=== PATIENT | female | born 1990 | race Caucasian/White ===

== ENCOUNTER 2021-06-11 13:50 | Emergency (ER) | payer OTHER, SELFPAY ==
[2021-06-11] VITALS (10 sets, daily range): BP systolic 112–156; BP diastolic 70–93; PULSE 68–78; RESP 16–18; TEMP 36.6–36.8; O2SAT 97–100; BMI 21.6
[2021-06-11 14:23] LABS: Add Manual Diff / Slide Review NO; Basophils Absolute Auto 100 /uL (0-100); Basophils Percent Auto 0.5 % (0-2); Eosinophils Absolute Auto 100 /uL (0-450); Eosinophils Percent Auto 0.6 % (2-4); Hematocrit 39.1 % (36-46); Hemoglobin 13.4 g/dL (12.0-16.0); Lymphocytes Absolute Auto 1200 /uL (1100-4500); Lymphocytes Percent Auto 10.2 % (25-40); Mean Corpuscular HGB Conc 34.4 % (30-36); Mean Corpuscular Volume 87.1 fL (80-100); Monocytes Absolute Auto 500 /uL (0-900); Monocytes Percent Auto 4.5 % (3-14); Neutrophils Absolute Auto 9700 /uL (1500-7000); Neutrophils Percent Auto 84.2 % (50-75); Platelet Count 315 X10^3/uL (150-400); Red Blood Cell Count 4.49 X10^6/uL (4.0-5.2); Red Cell Distribution Width 12.4 % (11.6-14.8); White Blood Cell Count 11.5 X10^3/uL (4.5-11.0)
[2021-06-11 14:37] LABS: Appearance Urine UA CLOUDY; Bilirubin Urine UA NEGATIVE (NEGATIVE); Color Urine UA RED; Glucose Urine UA NEGATIVE (Negative); Ketones Urine UA NEGATIVE (NEGATIVE); Leukocyte Esterase Urine UA TRACE (NEGATIVE); Nitrite Urine UA NEGATIVE (Negative); Occult Blood Urine UA 3+ (Negative); Protein Urine UA 2+ (Negative); Specific Gravity Urine UA >=1.030 (1.000-1.035); Urobilinogen Urine UA 0.2 E.U./dL (0.2)
[2021-06-11 14:38] LABS: BUN Creatinine Ratio 19.7 (6-22); Blood Urea Nitrogen 13 mg/dL (7-17); Calcium 9.4 mg/dL (8.4-10.2); Carbon Dioxide 28 mmol/L (22-32); Chloride 102 mmol/L (98-107); Estimated Glomerular Filt Rate > 60.0 mL/min (>60); Glucose 123 mg/dL (70-100); HEMOLYSIS < 15 (0-50); Potassium 3.9 mmol/L (3.4-5.1); Sodium 140 mmol/L (137-145)
[2021-06-11 14:49] LABS: RBC Urine >100/HPF (0-5/HPF); pH Urine UA 5.5 (4.5-8.0)
[2021-06-11 14:50] LABS: Amorphous Sediment Urine 1+; Bacteria Urine Moderate (10-30); Culture Indicated Urine Specimen Cultured; Mucus Urine 1+ (Negative); Squamous Epithelial Cell Urine 1-5 /HPF (0-5/HPF); WBC Urine 5-10/HPF (0-5/HPF)
--- NOTE | 2021-06-11 15:31 | ED_ITS ---
HPI - General Adult General Chief complaint: Vaginal Bleeding Stated complaint: severe cramping, dizzy, lightheaded Time Seen by Provider: 06/11/21 15:14 Source: patient Mode of arrival: Ambulatory History of Present Illness HPI narrative: 31-year-old female. States that she had a negative test approximately 1 week ago. Is here today because of right sided adnexal discomfort and also vaginal bleeding. She states that her symptoms have improved somewhat since the onset earlier today but her still present. She was concerned about a miscarriage. States that this is about the time when she would have a menstrual cycle but symptoms that she is presenting which her muscle worse than normal. No fevers. No urinary symptoms. No change in bowel habits. No prior abdominal surgeries. Related Data Allergies Allergy/AdvReac Type Severity Reaction Status Date / Time No Known Drug Allergies Allergy Verified 06/11/21 14:06 Review of Systems Gastrointestinal Gastrointestinal: Reports as per HPI and Reports system reviewed and no additional complaints, except as documented Genitourinary Genitourinary: Reports system reviewed and no additional complaints, except as documented Musculoskeletal Musculoskeletal: Reports system reviewed and no additional complaints, except as documented Integumentary/Breasts Skin/Breast: Reports system reviewed and no additional complaints, except as documented Hematologic/Lymphatic On Anticoagulants: No Patient History Medical History Healthy adult Social History Smoking Status: Never smoker Smoking Status: Never smoker alcohol intake frequency: holidays/special occasions only Substance Use Type: does not use Exam Initial Vital Signs Initial Vital Signs: Vital Signs Temperature 98 F 06/11/21 14:02 Pulse Rate 78 06/11/21 14:02 Respiratory Rate 18 06/11/21 14:02 Blood Pressure 112/70 06/11/21 14:02 Pulse Oximetry 98 06/11/21 14:02 HENMT Head: normal to inspection Resp Effort & Inspection: normal respiratory effort Cardio Rate: regular rate GI Palpation: soft, No firm, No guarding and tender (Right adnexa) Skin General: no rashes or lesions noted Neuro General: patient alert, patient awake and moves all extremities Extrem General: normal to inspection and capillary refill normal Psych Appearance: grossly normal and well kempt Course Orders Ordered: ED Orders 06/11/21 14:15 Basic Metabolic Panel Stat Complete Blood Count AUTO DIFF Stat Urinalysis and Microscopic Stat Urine Culture Stat 06/11/21 15:31 US pelvic complete Stat Vital Signs Vital signs: Vital Signs - 8 hr 06/11/21 14:02 06/11/21 14:57 06/11/21 14:58 Temperature 98 F Pulse Rate 78 72 70 Respiratory Rate 18 Blood Pressure 112/70 128/76 Pulse Oximetry 98 97 99 06/11/21 15:00 06/11/21 15:01 06/11/21 15:02 Temperature 98.2 F Pulse Rate 72 69 68 Respiratory Rate 16 Blood Pressure 130/93 H 128/76 Pulse Oximetry 99 98 100 06/11/21 15:30 06/11/21 15:31 06/11/21 16:34 Temperature Pulse Rate 76 68 73 Respiratory Rate 18 18 Blood Pressure 156/92 H 156/92 H 143/76 H Pulse Oximetry 99 99 98 06/11/21 16:35 Temperature Pulse Rate 73 Respiratory Rate 18 Blood Pressure 143/76 H Pulse Oximetry 99 Medical Decision Making Lab Data Lab results reviewed: Yes I reviewed the patient's lab results. Result diagrams: 06/11/21 14:15 06/11/21 14:15 Labs: Lab Results 06/11/21 06/11/21 06/11/21 Range/Units 14:15 14:15 14:15 WBC 11.5 H (4.5-11.0) X10^3/uL RBC 4.49 (4.0-5.2) X10^6/uL Hgb 13.4 (12.0-16.0) g/dL Hct 39.1 (36-46) % MCV 87.1 (80-100) fL MCH 30.0 (26-34) PG MCHC 34.4 (30-36) % RDW 12.4 (11.6-14.8) % Plt Count 315 (150-400) X10^3/uL Neut % (Auto) 84.2 H (50-75) % Lymph % (Auto) 10.2 L (25-40) % [place] % (Auto) 4.5 (3-14) % Eos % (Auto) 0.6 L (2-4) % Baso % (Auto) 0.5 (0-2) % Neut # (Auto) 9700 H (8881-0519) /uL Lymph # (Auto) 1200 (6599-9988) /uL [place] # (Auto) 500 (0-900) /uL Eos # (Auto) 100 (0-450) /uL Baso # (Auto) 100 (0-100) /uL Sodium 140 (137-145) mmol/L Potassium 3.9 (3.4-5.1) mmol/L Chloride 102 (98-107) mmol/L Carbon Dioxide 28 (22-32) mmol/L BUN 13 (7-17) mg/dL Creatinine 0.66 (0.52-1.04) mg/dL Estimated GFR > 60.0 (>60) mL/min BUN/Creatinine Ratio 19.7 (6-22) Glucose 123 H (70-100) mg/dL Calcium 9.4 (8.4-10.2) mg/dL Urine Color Red Urine Appearance Cloudy Urine pH 5.5 (4.5-8.0) Ur Specific [place] >=1.030 H (1.000-1.035) Urine Protein 2+ H (Negative) Urine Glucose (UA) Negative (Negative) g/dL Urine Ketones Negative (NEGATIVE) Urine Occult Blood 3+ H (Negative) Urine Nitrate Negative (Negative) Urine Bilirubin Negative (NEGATIVE) Urine Urobilinogen 0.2 (0.2) E.U./dL Ur Leukocyte Esterase Trace H (NEGATIVE) Urine RBC >100/hpf H (0-5/HPF) Urine WBC 5-10/hpf H (0-5/HPF) Ur Squamous Epith Cells 1-5 /hpf (0-5/HPF) Amorphous Sediment 1+ Urine Bacteria Moderate (10-30) H (None) Urine Mucus 1+ H (Negative) Ur Culture Indicated? Specimen cultured Point of Care Testing Test Results Negative Point of care testing: Point of Care Testing Test Results Negative Imaging Data US - BUILDING SURVEYOR: Radiologist's Impression: [address] [address] Ultrasound Report Signed Patient: Geri Lira MR#: [id number] : 1990 Acct:[id number] Age/Sex: 31 / F Date of Service: 06/11/21 Loc: ED Accession Number: [id number] ?? Procedure: US pelvic complete Ordering Provider: Harpal Vazquez D.O. PROCEDURE:? US PELVIC COMPLETE ? INDICATIONS:? RIGHT ADNEXA PAIN AND VAGINAL BLEEDING ? TECHNIQUE:? Real-time scanning was performed of the pelvic organs, with image documentation.? Additional endovaginal scanning was necessary due to incomplete visualization of the adnexal and endometrial structures by transabdominal scanning.? ? COMPARISON:? None. ? FINDINGS:? ?? Uterus:? Uterus is retroverted and normal in size at 7.1 x 4.2 x 6 point cm. The myometrium is homogeneous. ? The endometrium measures 8 mm combined thickness.? ? Ovaries:? The right ovary measures 4.2 x 1.9 x 1.7 cm and demonstrates a complex focus that measures 12 x 10 x 13 mm. The left ovary measures 4.1 x 1.7 x 1.9 cm. The ovaries otherwise have a normal sonographic appearance.? No adnexal masses are seen. ? Other:? No pathologic free abdominal or pelvic fluid. ? ? IMPRESSION:? Complex focus seen involving the right ovary that measures up to 13 mm, which may be related to a resolving hemorrhagic cyst. If it would be clinically appropriate, a followup pelvic ultrasound could be considered in 6 weeks to assure resolution/ improvement.? We strive to produce accurate, complete, and clear reports of imaging services. To assist us in improving patient care, this report was composed using standard report templates and voice recognition software. Therefore, it may contain abnormal punctuation, insertions and/or omissions. Occasional wrong-word or sound-alike substitutions may occur. Though we review the report and make efforts to correct it, we do recom mend that the report be read carefully in proper context to recognize any text inaccuracies. ? ? Dictated by: Lorenzo Zhang M.D. on 06/11/2021 at 15:20 ? ? Approved by: Lorenzo Zhang M.D. on 06/11/2021 at 15:21? MDM Narrative Medical decision making narrative: Patient's labs and exam relatively benign. test is negative. Not anemic. Has right adnexa discomfort. Ultrasound shows what appears to be a ruptured right ovarian cyst which most likely explains her adnexal discomfort. I suspect vaginal bleeding is related to menses. I do feel that we can hold on further workup for now. She was given return precautions and follow-up instructions. She expressed understanding and agreement. Discharge Plan Departure Patient Disposition: Home Clinical Impression: Vaginal bleeding, Ovarian cyst Instructions: DI for Vaginal Bleeding Activity Restrictions/Additional Instructions: I do recommend that you contact your primary doctor for a follow-up. Return to the emergency department for any new or worsening symptoms. Referrals: Jose Angel Cancino MD [Primary Care Provider] -
--- NOTE | 2021-06-11 15:31 | DI.US.S_ITS ---
PROCEDURE: US PELVIC COMPLETE INDICATIONS: RIGHT ADNEXA PAIN AND VAGINAL BLEEDING TECHNIQUE: Real-time scanning was performed of the pelvic organs, with image documentation. Additional endovaginal scanning was necessary due to incomplete visualization of the adnexal and endometrial structures by transabdominal scanning. COMPARISON: None. FINDINGS: Uterus: Uterus is retroverted and normal in size at 7.1 x 4.2 x 6 point cm. The myometrium is homogeneous. The endometrium measures 8 mm combined thickness. Ovaries: The right ovary measures 4.2 x 1.9 x 1.7 cm and demonstrates a complex focus that measures 12 x 10 x 13 mm. The left ovary measures 4.1 x 1.7 x 1.9 cm. The ovaries otherwise have a normal sonographic appearance. No adnexal masses are seen. Other: No pathologic free abdominal or pelvic fluid. IMPRESSION: Complex focus seen involving the right ovary that measures up to 13 mm, which may be related to a resolving hemorrhagic cyst. If it would be clinically appropriate, a followup pelvic ultrasound could be considered in 6 weeks to assure resolution/ improvement. We strive to produce accurate, complete, and clear reports of imaging services. To assist us in improving patient care, this report was composed using standard report templates and voice recognition software. Therefore, it may contain abnormal punctuation, insertions and/or omissions. Occasional wrong-word or sound-alike substitutions may occur. Though we review the report and make efforts to correct it, we do recommend that the report be read carefully in proper context to recognize any text inaccuracies. Dictated by: Lorenzo Zhang M.D. on 06/11/2021 at 15:20 Approved by: Lorenzo Zhang M.D. on 06/11/2021 at 15:21
== END 2021-06-11 16:55 | disposition home or self-care (01) ==
PROVIDERS: Emergency Provider Emergency Medicine; PCP Family Medicine
DX: N93.9 Abnormal uterine and vaginal bleeding, unspecified (principal); N83.201 Unspecified ovarian cyst, right side
CPT/HCPCS: 36415; 76830; 76856; 80048; 81001; 81025; 85025; 87086; 99284

== ENCOUNTER 2024-06-01 09:56 | Emergency (ER) | payer OTHER, SELFPAY ==
[2024-06-01 10:01] VITALS: BP 120/59; PULSE 67; RESP 14; TEMP 36.6; O2SAT 99; BMI 22.6
--- NOTE | 2024-06-01 11:23 | ED.SKABFB ---
HPI - Skin/Abscess/Foreign Bdy <Ashley Burnett PA-C - Last Filed: 06/01/24 13:03> General Chief complaint: Skin/Abscess/Foreign Body Stated complaint: numbness and droopy r eye Time Seen by Provider: 06/01/24 11:00 Source: patient Mode of arrival: Ambulatory History of Present Illness HPI narrative: Ms. Lira is a very pleasant 34-year-old female with no reported past medical history who presents to the emergency department for numb sensation on her right upper eyelid x8 weeks now with concern for potential drooping right eyelid since this morning. Patient states 8 weeks ago she developed abnormal sensation of her right upper eyelid that developed slowly. Reports that the eyelid feels like it should be numb but when she touches it it is not actually numb. She denies tingling or pins and needles or pain. Reports that it feels like the right eyelid is extremely droop however when she looks in the mirror it has not dropped. The sensation had persisted for 8 weeks and she tried not to worry about it however this morning when she woke up and looked in the mirror she felt like her right eyelid may have been drooping more than the left so she called her primary care doctor who advised she come to the emergency department. At this time there is no drooping of the patient's right eyelid which we confirmed by looking at picture together however she states that it might have been slightly drooped this morning because when you wake up your eyes or more puffy. She denies any associated symptoms of eye irritation discomfort, drainage, trauma to the eye, headache, pain, dizziness, lightheadedness, visual disturbance, gait abnormality, confusion, neck pain, fevers, chills, flu-like symptoms. Reports starting HRT slightly before symptoms began. Related Data Home Medications Medication Instructions Recorded Confirmed levothyroxine 25 mcg capsule 25 mcg PO DAILY 08/07/21 08/07/21 Allergies Allergy/AdvReac Type Severity Reaction Status Date / Time amitriptyline AdvReac Mild Hives Verified 06/01/24 10:01 Review of Systems <Ashley Burnett PA-C - Last Filed: 06/01/24 13:03> Review of Systems ROS Unobtainable: All systems reviewed & are unremarkable except as noted in HPI and below Patient History <Ashley Burnett PA-C - Last Filed: 06/01/24 13:03> Medical History Hypothyroidism Healthy adult Surgical History Anesthesia S/P breast lumpectomy (~2020) History of section (~2014) Family History Grandmother Breast cancer Social History Smoking Status: Never smoker Smoking Status: Never smoker alcohol intake frequency: holidays/special occasions only Exam <Ashley Burnett PA-C - Last Filed: 06/01/24 13:03> Narrative Exam Narrative: GENERAL: 34 year old patient appears stated age. Well-developed patient, in no acute distress. HEAD: Atraumatic. Normocephalic. EYES: PERRL. Extraocular motions intact. No scleral icterus. No injection or drainage. BL hooded eyelids, left lid with double fold. No ptosis BL. ENT: Nose without bleeding, purulent drainage. Throat without erythema, absence of tonsils. Airway patent. NECK: Trachea midline. Cervical ROM intact. CARDIOVASCULAR: Regular rate and rhythm. RESPIRATORY: Nonlabored respirations. Speaking in clear, full sentences. Clear to auscultation. EXTREMITIES: No edema or joint tenderness. NEURO: AOx3. Clear speech. Moves all 4 extremities appropriately. Normal [id number]-zrhl-wluyuz, rapid alternating movements, heel-suarez. No facial asymmetry except for right nasolabial scar. Sensation intact to light touch throughout the bilateral face upper and lower extremities. No pronator drift. Gross vision and hearing intact. SKIN: Scar right NL fold/cheek region from dog bite when child, this cause lower facial asymmetry with smile. Initial Vital Signs Initial Vital Signs: Vital Signs Temperature 97.9 F 06/01/24 10:01 Pulse Rate 67 06/01/24 10:01 Respiratory Rate 14 06/01/24 10:01 Blood Pressure 120/59 L 06/01/24 10:01 Pulse Oximetry 99 06/01/24 10:01 Oxygen Delivery Method Room Air 06/01/24 10:01 <Mikaela Kurtz MD - Last Filed: 06/01/24 19:56> Initial Vital Signs Initial Vital Signs: Vital Signs Temperature 97.9 F 06/01/24 10:01 Pulse Rate 67 06/01/24 10:01 Respiratory Rate 14 06/01/24 10:01 Blood Pressure 120/59 L 06/01/24 10:01 Pulse Oximetry 99 06/01/24 10:01 Oxygen Delivery Method Room Air 06/01/24 10:01 Course <Ashley Burnett PA-C - Last Filed: 06/01/24 13:03> Orders Ordered: ED Orders 06/01/24 11:22 CT head/brain wo con Stat Vital Signs Vital signs: Vital Signs - 8 hr 06/01/24 12:26 Pulse Rate 67 Respiratory Rate 16 Blood Pressure 110/61 Pulse Oximetry 97 <Mikaela Kurtz MD - Last Filed: 06/01/24 19:56> Orders Ordered: ED Orders 06/01/24 11:22 CT head/brain wo con Stat Vital Signs Vital signs: Vital Signs - 8 hr 06/01/24 12:26 Pulse Rate 67 Respiratory Rate 16 Blood Pressure 110/61 Pulse Oximetry 97 MDM - Skin/Abscess/Foreign Bdy <Ashley Burnett PA-C - Last Filed: 06/01/24 13:03> Medical Records Attestation: I reviewed the patient's medical records. Imaging Data CT scan - head: Radiologist's Impression: PROCEDURE: CT HEAD/BRAIN WO CON INDICATIONS: numb sensation right upper eyelid x 8 weeks TECHNIQUE: Noncontrast 4.5 mm thick angled axial sections acquired from the foramen magnum to the vertex, with coronal and sagittal reformats. For radiation dose reduction, the following was used: automated exposure control, adjustment of mA and/or kV according to patient size. COMPARISON: None. FINDINGS: Image quality: Diagnostic. CSF spaces: Basal cisterns are patent. No extra-axial fluid collections. Ventricles are normal in size and shape. Brain: No midline shift. No intracranial masses or hemorrhage. Hahn-white matter interface is normal. Skull and face: Calvarium and visualized facial bones are intact, without suspicious lesions. Sinuses: Visualized sinuses and mastoids are clear. IMPRESSION: No acute intracranial pathology. [facility] Narrative Medical decision making narrative: 34-year-old female with no reported past medical history who presents to the emergency department for numb sensation on her right upper eyelid x8 weeks now with concern for potential drooping right eyelid since this morning. Differential diagnosis includes but is not limited to hooded eyelid, eyelid edema, water retention, Andres's palsy, nerve palsy, orbital tumor, Aston syndrome, ophthalmic migraine, myasthenia gravis, etc. On exam the patient is in no acute distress, nontoxic appearing, vital signs within normal limits, no focal neurologic deficits, no facial drooping. No signs concerning for stroke at this time. NIH stroke scale 0. She is having sensation of decreased sensation /drooping of the right upper eyelid however sensation is intact and there is no drooping. Given these abnormal sensations for the last 8 weeks, after extensive shared decision-making with the patient, we will proceed with CT scan head without contrast to rule out any gross abnormality or orbital tumor. CT scan head reveals no acute intracranial pathology. Patient very reassured, at this time suspect symptoms likely cutaneous however recommended prompt follow up with the PCP who could refer to neurology if needed. Discussed strict ED return precautions with the patient. She verbalized understanding all information is agreeable to the plan. She is stable for discharge home. Discharge Plan Departure Patient Disposition: Home Clinical Impression: Paresthesia of skin Activity Restrictions/Additional Instructions: Dear Ms. Lira, Thank you for coming to the emergency department today. CT scan of your head did not reveal any abnormalities. Please follow up with your primary care doctor or return to the emergency room for any new or worsening symptoms or other concerns. Please follow up with your primary care doctor within the next 2-3 days for ER follow-up. (If you do not have a PCP you can call [phone]. to schedule an appointment with an [facility] Primary Care Provider) IF YOU DEVELOP ANY NEW OR WORSENING SYMPTOMS, RETURN TO THE ER! Please read the attached instructions, they highlight more specific treatments and interventions for you at home. Thank you for letting me participate in your care, Ashley Burnett PA-C Prescriptions: No Action levothyroxine 25 mcg capsule 25 mcg PO DAILY Referrals: Jose Angel Cancino MD [Primary Care Provider] - Stand Alone Forms: Patient Portal/API/Survey ED Sign-out <Mikaela Kurtz MD - Last Filed: 06/01/24 19:56> Cosign ED Attending Cosignature Attestation: I was immediately available in the department for consultation throughout this patient's visit. Mikaela Kurtz MD
[2024-06-01 12:26] VITALS: BP 110/61; PULSE 67; RESP 16; O2SAT 97
== END 2024-06-01 12:31 | disposition home or self-care (01) ==
PROVIDERS: Emergency Provider Physician Assistant; PCP Family Medicine
DX: R20.2 Paresthesia of skin (principal)
CPT/HCPCS: 70450; 99281; 99284